=== PATIENT | male | born 1940 | race Caucasian/White ===

== ENCOUNTER → 2016-09-07 | Outpatient (CLI) | payer OTHER ==
[2016-09-07 13:18] LABS: URINE APPEARANCE CLEAR (CLEAR); URINE BILIRUBIN NEG (NEG); URINE COLOR YELLOW; URINE NITRITE NEG (NEG); UROBILINOGEN NEG (NEG); ZZUR CULT IF INDIC CLEAN CATCH NO
[2016-09-07 13:23] LABS: MANUAL MICROSCOPIC REQUIRED? NO; REVIEW REQ? NO
== END | disposition home or self-care (01) ==
LOC: C.LABMFLN 08:53
PROVIDERS: ATTEND Family Medicine
DX: R10.9 Unspecified abdominal pain (principal)

== ENCOUNTER → 2017-02-15 | Outpatient (CLI) | payer OTHER ==
--- NOTE | 2017-02-15 15:18 | DIAGNOSTIC IMAGING REPORT ---
CT SCAN OF THE ABDOMEN AND PELVIS WITHOUT IV CONTRAST CLINICAL HISTORY: Adrenal myelolipoma. Pancreatic neoplasm. COMPARISON STUDY: No priors. TECHNIQUE: CT scan of the abdomen and pelvis is performed from the lung bases to the proximal femora. Images are reviewed in the axial, sagittal, and coronal planes. IV contrast was not administered for this examination. Note that the examination is suboptimal without oral and IV contrast. Automated dose control exposure was utilized. CT DOSE: 1020.83 mGycm FINDINGS: Lung bases: The heart is normal in size and without pericardial effusion. There is a 6 mm left lower lobe pulmonary nodule seen on image #62. The lung bases are otherwise clear. A small hiatal hernia is identified. Liver: The unenhanced liver is normal in size and contour. The liver demonstrates diffusely diminished attenuation consistent with hepatic steatosis. There is no intrahepatic biliary ductal dilatation. There is minimal pneumobilia, likely related to previous sphincterotomy. Gallbladder: Surgically absent noting clips in the gallbladder fossa. Spleen: The spleen is mildly enlarged measuring 13.5 cm in length. Pancreas: There are is near complete fatty atrophy of the pancreas. An indeterminant 1.1 cm nodule is seen within or adjacent to the pancreatic head on image #139. Adrenal glands: The left adrenal gland is normal in appearance. There is a heterogeneous lesion expected location of the right adrenal gland. This is predominantly fat density, contains thin strands of soft tissue as well as coarse calcifications. This is best seen on axial image #153 and measures 6.3 x 8.1 x 7.4 cm. Kidneys: The unenhanced kidneys are atrophic and without hydronephrosis. There are 2 nonobstructing left renal calculi measuring up to 8 mm. No right renal calculi are identified. There is no evidence of contour deforming renal mass lesion. Abdominal vasculature: The abdominal aorta is normal in course and caliber noting mild atherosclerotic calcification. Bowel: There is no bowel obstruction. There are scattered colonic diverticula without CT evidence of acute diverticulitis. Findings are consistent with previous appendectomy. A 1.6 cm calcified structure in the cecum is seen on image #178 and likely represents fecal contents. Peritoneum: There is no intraperitoneal free air or abdominal ascites. There is a fat-containing umbilical hernia. Lymphadenopathy: There are enlarged right cardiophrenic lymph nodes. The largest is seen on image #32 and measures 1.9 x 1.6 cm. There is no upper abdominal, retroperitoneal, pelvic sidewall, or inguinal lymphadenopathy. Pelvic viscera: There is median lobe hypertrophy of the prostate gland. The bladder is normal as visualized. Skeletal structures: The skeletal structures are osteopenic. Mild to moderate lumbosacral spondylosis is observed. There is evidence of previous laminectomy in the lower lumbar spine. No lytic or blastic lesions are seen. IMPRESSION: 1. There is an 8.1 cm predominantly fat-containing lesion in the expected location of the right adrenal gland. This also contains thin strands of soft tissue and coarse calcifications. The appearance is most typical for a large adrenal myelolipoma. Although considered much less likely, given the size and location a retroperitoneal liposarcoma is the primary differential consideration. At a minimum, continued imaging follow-up is recommended. 2. There is near complete fatty atrophy of the pancreas. An 11 mm ovoid soft tissue nodule is identified within or adjacent to the head of the pancreas. This is of low suspicion, and could represent residual pancreatic tissue or possibly a small peripancreatic lymph node. Neoplasm is considered much less likely, and the appearance is not consistent with pancreatic adenocarcinoma. 3. Hepatic steatosis. 4. Mild splenomegaly. 5. There are pathologically enlarged right cardiophrenic lymph nodes. These are of indeterminant etiology and significance. No additional enlarged lymph nodes are identified in the other pelvis. 6. There is an indeterminant 6 mm left lower lobe pulmonary nodule. Consider a CT scan of the chest for full assessment of the thorax 7. Nonobstructing left renal calculi. 8. Additional findings as above. Electronically signed by: Talon Godinez M.D. 02/15/2017 3:16 PM Dictated Date/Time: 02/15/2017 3:03 PM
== END | disposition home or self-care (01) ==
LOC: C.CTS 14:17
PROVIDERS: ATTEND Surgery
DX: D17.79 Benign lipomatous neoplasm of other sites (principal); D49.0 Neoplasm of unspecified behavior of digestive system; K76.0 Fatty (change of) liver, not elsewhere classified; R59.0 Localized enlarged lymph nodes; R91.1 Solitary pulmonary nodule; N20.0 Calculus of kidney

== ENCOUNTER → 2017-03-02 | Outpatient (CLI) | payer OTHER ==
[~2017-03-02] MED LIST: OPTIRAY 320 IV PRN
--- NOTE | 2017-03-02 14:10 | DIAGNOSTIC IMAGING REPORT ---
CT SCAN OF THE CHEST WITHOUT IV CONTRAST CLINICAL HISTORY: Pulmonary nodule. COMPARISON STUDY: Abdominal CT dated 02/15/2017. TECHNIQUE: CT scan of the thorax was performed from the thoracic inlet to the upper abdomen. Images are reviewed in the axial, sagittal, and coronal planes. IV contrast was not administered for this examination as per the referring clinician. A dose lowering technique was utilized adhering to the principles of ALARA. CT DOSE: 403.84 mGycm FINDINGS: Thyroid: Imaged portions of the thyroid gland are normal in size and attenuation. Thoracic aorta: The thoracic aorta is normal in caliber and demonstrates standard 3-vessel arch anatomy. Heart: The heart is normal in size and without pericardial effusion. Lungs and pleural spaces: There is no airspace consolidation or pleural effusion. The trachea and central airways are clear. The pulmonary nodule at the left lung base seen on 02/15/2017 has decreased in size, now measuring 3 mm as seen on image #213. An additional 3 mm left lower lobe pulmonary nodule is seen on image #137. Mediastinum: There is no mediastinal lymphadenopathy. Lexi: Not well assessed without IV contrast. Axillae: There is no axillary lymphadenopathy. Upper abdomen: There is a small hiatal hernia. Cholecystectomy clips are noted. Trace pneumobilia is observed. Skeletal structures: The skeletal structures are osteopenic. Degenerative change is noted in the thoracic spine and shoulders. No lytic or blastic bony lesions are seen. IMPRESSION: 1. There is no airspace consolidation or pleural effusion. 2. The pulmonary nodule at the left lung base seen on 02/15/2017 has decreased in size, now measuring 3 mm (previously measured 6 mm). This is likely on an inflammatory basis and is of low suspicion. 3. An additional indeterminant but low suspicion 3 mm left lower lobe pulmonary nodule is noted. This can be followed if clinically warranted. See below. Please refer to below summary of Fleischner criteria recommendations for follow-up of incidental CT nodules (Jeremy Pereira, Guidelines for management of small pulmonary nodules detected on CT scans: A statement from the Fleischner Society, Radiology 237: [phone].) SOLID NODULES Solitary nodule size: <6 mm * low risk patients: no follow-up needed * high risk patients: optional CT at 12 months Solitary nodule size: 6-8 mm * low risk patients: follow-up at 6-12 months, then consider further follow-up at 18-24 months * high risk patients: initial follow-up CT at 6-12 months and then at 18-24 months if no change Solitary nodule size: >8 mm * either low or high risk patients - consider follow-up CT at 3 months, and/or CT-PET, and/or biopsy Multiple nodules size: <6 mm * low risk patients: no routine follow-up * high risk patients: optional CT at 12 months Multiple nodules size: 6-8 mm * low risk patients: follow-up at 3-6 months, then consider further follow-up at 18-24 months * high risk patients: follow-up at 3-6 months, then at 18-24 months if no change Multiple nodules size: >8 mm * low risk patients: follow-up at 3-6 months, then consider further follow-up at 18-24 months * high risk patients: follow-up at 3-6 months, then at 18-24 months if no change Note: newly detected indeterminate nodule in persons 35 years of age or older. * low risk patients: minimal or absent history of smoking and/or other known risk factors * high risk patients: history of smoking or of other known risk factors (e.g. first degree relative with lung cancer, or exposure to asbestos, radon, uranium) * if a nodule up to 8 mm is partly solid or is ground glass further follow-up is required after 24 months to exclude possible slow growing adenocarcinoma ([place]ALY) SUBSOLID NODULES Solitary pure ground-glass nodule * nodule size <6 mm - no CT follow-up required * nodule size >=6 mm - follow-up CT at 6-12 months, then every 2 years until 5 years Solitary part-solid nodule * nodule size <6 mm - no CT follow-up required * nodule size >=6 mm - follow-up CT at 3-6 months. If unchanged, and solid component remains <6 mm, then annual follow-up for 5 years Multiple subsolid nodules * nodule size <6 mm - follow-up CT at 3-6 months, consider further follow-up at 2 and 4 years if stable * nodule size >=6 mm - follow-up CT at 3-6 months, subsequent management based on the most suspicious nodule(s) Electronically signed by: Talon Godinez M.D. 03/02/2017 2:09 PM Dictated Date/Time: 03/02/2017 2:03 PM
== END | disposition home or self-care (01) ==
LOC: C.CTS 13:24
PROVIDERS: ATTEND Family Medicine
DX: D49.0 Neoplasm of unspecified behavior of digestive system (principal); R91.8 Other nonspecific abnormal finding of lung field; E27.9 Disorder of adrenal gland, unspecified

== ENCOUNTER → 2017-03-02 | Outpatient (CLI) | payer OTHER ==
--- NOTE | 2017-03-02 14:20 | DIAGNOSTIC IMAGING REPORT ---
PANCREAS (ABDOMEN) COMBO CLINICAL HISTORY: NEOPLASM OF HEAD OF PANCREAS TECHNIQUE: Multiphase CT evaluation of the abdomen COMPARISON STUDY: 02/15/2017 FINDINGS: Mild fatty infiltration of liver. Liver spleen and pancreas otherwise enhance uniformly. Myelolipoma of the right adrenal/kidney complex is unchanged. This most likely benign finding. Fatty replacement of pancreas is noted. The left millimeter nodule at the pancreatic head behaviors similar to [place] pancreatic tissue. There is minimal postcontrast enhancement.. No distention of the pancreatic or biliary ductal system. Graph unchanging nonobstructing renal calcifications a left kidney. No evidence for hydronephrosis. Small hiatal hernia is again noted. IMPRESSION: 1. Benign-appearing myelolipoma of the right adrenal. 2. 11 millimeter nodular density pancreatic head felt to represent residual pancreatic tissue with the remainder of the pancreas fatty replaced. 3. Unchanging right cardiophrenic lymph nodes previously described. The above report was generated using voice recognition software. It may contain grammatical, syntax or spelling errors. Electronically signed by: Jose Silva M.D. 03/02/2017 2:19 PM Dictated Date/Time: 03/02/2017 2:02 PM
== END | disposition home or self-care (01) ==
LOC: C.CTS 13:21
PROVIDERS: ATTEND Surgery
DX: D49.0 Neoplasm of unspecified behavior of digestive system (principal); E27.9 Disorder of adrenal gland, unspecified

== ENCOUNTER 2017-12-27 13:37 | Emergency (ER) | payer OTHER ==
[~2017-12-27] VITALS: Ht 161.3 cm; Wt 81.2 kg
[2017-12-27 13:43] VITALS: TEMP 36.5; Ht 161.3 cm; Wt 81.2 kg
[2017-12-27] MEDS ORDERED: RANITIDINE HCL SYRUP 150 MG/10 ML UDC PO ONE (14:15)
[2017-12-27] MEDS ORDERED: SODIUM CHLORIDE 0.9% 1000ML 1,000 ML IV SCH (14:15)
--- NOTE | 2017-12-27 14:22 | EMERGENCY ROOM VISIT NOTE ---
History First contact with patient: 13:49 Chief Complaint: VOMITING Stated Complaint: NAUSEA,VOMITING, CANT KEEP ANYTHING DOWN Nursing Triage Summary: Patient presents with c/o nausea and vomiting that began on 12/24/17 Bilateral upper abdominal pain (chronic since surgery in 08/2017) States he is unable to keep anything down Hx/ esophageal cancer, surgical removal of part of esophagus and part of stomach in 08/2017 He states he has had intermittent nausea and vomiting since the surgery History of Present Illness The patient is a 77 year old male who presents to the Emergency Room with complaints of bilateral upper abdominal pain. He was sent here by his PCP The pain is located in his upper abdomen. He describes it as a dull pain that becomes sharp after eating. 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 He has had associated vomiting which has been occurring for 3-4 days at a time and then can stop for 1-2 weeks at a time. His vomit is green and made of up food particles. No blood in the vomit currently but notes he has had blood in his vomit in the past. He describes it as coffee ground. His surgery was done at the end of August. He notes that prior to the surgery he had chemotherapy and radiation. He is scheduled for a repeat CT scan on February 11 with follow up with his oncologist. He has had associated fatigue, and weight loss of 50-60 pounds. He denies any fevers, chills, night sweats, chest pain, shortness of breath, diarrhea, constipation, dysuria, hematuria, dizziness or light-headedness Review of Systems CONSTITUTIONAL: No fever, chills, sweats or night sweats. No recent infections. 50 pound weight loss NEUROLOGIC: No headaches, dizziness or syncopal episodes. HEENT: No hearing or visual changes. No sinus or nasal issues. No mouth sores, thrush or oral lesions. CARDIOVASCULAR: No chest pain or palpitations. RESPIRATORY: No SOB, dyspnea, cough or hemoptysis. GASTROINTESTINAL: Has had vomiting, no diarrhea, constipation, reflux. GENITOURINARY: No dysuria, frequency, urgency, incontinence or hematuria. SKIN: No rashes or skin lesions. No hair loss or nail changes. HEMATOLOGIC: No bleeding or abnormal bruising Past Medical/Surgical History Stomach/esophageal cancer Adrenal Gland tumour Back Surgery Large bowel resection due to diverticulitis Family History Brother and Dad- Diabetes Mother - macular degeneration Social History Smoking Status: Former Smoker Smokeless Tobacco Use: No Alcohol Use: none Drug Use: none Housing Status: lives alone Occupation Status: retired Current/Historical Medications Scheduled Cholecalciferol (Vitamin D3), 1 CAP PO DAILY Potassium Chloride (Micro-K Ext Rel), 10 MEQ PO BID Miscellaneous Medications Fish Oil ([place]-3), 1 CAP PO Resident Involvement: Resident Care Provided Care Provided: Adult ED Physical Exam Vital Signs Date Time Temp Pulse Resp B/P (MAP) Pulse Ox O2 Delivery O2 Flow Rate FiO2 12/27/17 15:45 76 18 100/68 97 Room Air 12/27/17 14:30 96 Room Air 12/27/17 14:13 90 12/27/17 14:09 81 20 108/83 96 Room Air 12/27/17 13:43 36.5 77 20 98/64 94 Room Air Physical Exam HEENT: Head - normocephalic and atraumatic. Pupils are equal, round, and reactive to light. Extraocular eye muscles are intact and sclera are anicteric. Nose - moist nasal mucosa without discharge. Mouth - moist buccal mucosa. Oropharynx is nonerythematous and there is no tonsillar exudate or edema noted. Neck: Supple; no JVD, nuchal rigidity, cervical lymphadenopathy, or auscultated bruits. Heart: Regular rate and rhythm. There is a normal S1 and S2 with no murmurs, clicks, or gallops appreciated. Lungs: Clear to auscultation bilaterally with no wheezes, rales, or rhonchi. Abdomen: Soft, mild tenderness to palpation throughout. There are no palpable pulsatile masses or hepatosplenomegaly. There is no guarding, rigidity, or rebound noted. Extremities: No evidence of cyanosis, clubbing, or edema. There are easily palpable peripheral pulses. Neuro:The patient is awake and alert, oriented to day, time, and place. Muscle strength is 5/5 in all 4 extremities. The patient has equal part time receptionist strength and equal pedal push and pull. There are no cerebellar signs. Medical Decision & Procedures Laboratory Results 12/27/17 14:25 12/27/17 14:25 Test 12/27/17 14:25 Red Blood Count 4.72 M/uL (4.7-6.1) Mean Corpuscular Volume 85.6 fL (80-100) Mean Corpuscular Hemoglobin 29.0 pg (25-34) Mean Corpuscular Hemoglobin Concent 33.9 g/dl (32-36) RDW Standard Deviation 44.9 fL (36.4-46.3) RDW Coefficient of Variation 14.3 % (11.5-14.5) Mean Platelet Volume 10.9 fL (7.4-10.4) Anion Gap 7.0 mmol/L (3-11) Est Creatinine Clear Calc Drug Dose 64.0 ml/min Estimated GFR () 90.4 Estimated GFR (Non- 78.0 BUN/Creatinine Ratio 14.0 (10-20) Calcium Level 8.5 mg/dl (8.5-10.1) Total Bilirubin 1.2 mg/dl (0.2-1) Aspartate Amino Transf (AST/SGOT) 39 U/L (15-37) Alanine Aminotransferase (ALT/SGPT) 24 U/L (12-78) Alkaline Phosphatase 136 U/L (45-117) Total Protein 6.2 gm/dl (6.4-8.2) Albumin 3.1 gm/dl (3.4-5.0) Globulin 3.1 gm/dl (2.5-4.0) Albumin/Globulin Ratio 1.0 (0.9-2) Lipase 65 U/L (73-393) Medications Administered Medications (Trade) Dose Ordered Sig/Sol Route Start Time Stop Time Status Last Admin Dose Admin Sodium Chloride 1,000 ml @ 999 mls/hr Q1H1M IV 12/27/17 14:15 01/26/18 14:14 12/27/17 14:36 999 MLS/HR Ranitidine HCl (zANTac SYRUP) 150 mg NOW ONCE PO 12/27/17 14:15 12/27/17 14:16 DC 12/27/17 14:36 150 MG ED Course 1415: Patient was seen and examined by myself. 1425: Spoke to Dr. Cardona and discussed plan. Order Labs and CT scan of abdomen. Administering 1 L of fluids, PO zantac and IV zofran 1700: CT scan and labs returned. CT showed a hiatal hernia and part of the stomach in the thorax. Labs did not show any acute worrisome findings. Patient had not vomited in the ED but was still having 4/10 abdominal pain. 1720: Discussed the case with the patient and it was decided that he would follow up with his PCP Dr. Burgess later in the week for further referral to his specialists. Patient was agreeable to this. Medical Decision Patient is a 77 year male with a PMH of upper GI resection with post surgical gastroparesis, gastritis and esophagitis. He was on omeprazole and carafate as an outpatient which was stopped by his PCP. He is currently taking metoclopramide and ranitidine according to [facility] records. The patient is unaware of what medications he is currently taking. His CT scan showed a hiatal hernia with his stomach contents in his thorax. He is likely have reflux that has been worse when laying down and he notes that he isn't able to eat as much as he used to. We decided that it would be beneficial to out him back on his PPI and to eat smaller more regular meals. We are organizing him to have follow up with his PCP for further referral to GI specialist if needed. The patient understood this plan and was in agreement with this plan. Medication Reconcilliation Current Medication List: was personally reviewed by me Impression Primary Impression: Vomiting Departure Information Dispostion Home / Self-Care Condition FAIR Referrals Lyle Burgess M.D. (PCP) Patient Instructions My [facility] Resident Tracking Resident Involvement: Resident Care Provided Care Provided: Adult ED Resident Tracking Resident Involvement: Resident Care Provided Care Provided: Adult ED
[2017-12-27 14:30] VITALS: O2SAT 96
[2017-12-27] MEDS ORDERED: OPTIRAY 320 IV PRN (14:30)
[2017-12-27] MEDS ORDERED: OMEG10007 PO (14:36)
[2017-12-27] MEDS ORDERED: CHOL2000 PO (14:36)
[2017-12-27] MEDS ORDERED: POTA10CA28 PO (14:39)
--- NOTE | 2017-12-27 14:43 | EMERGENCY ROOM VISIT NOTE ---
ED Visit Note First contact with patient: 13:49 Resident Physician Supervision Note: I was present with Dr. Hannah during the history and exam. I discussed the case with the resident and agree with the findings and plan as documented in the note. Any exceptions or clarifications are listed here: None Documented By: Dejon Cardona
[2017-12-27 14:56] LABS: HEMATOCRIT 40.4 % (42-52); HEMOGLOBIN 13.7 g/dL (14.0-18.0); MEAN CELL VOLUME 85.6 fL (80-100); MEAN CORPUSCULAR HGB CONC 33.9 g/dl (32-36); MEAN PLATELET VOLUME 10.9 fL (7.4-10.4); PLATELET COUNT 111 K/uL (130-400); RED CELL DISTRIBUTION WIDTH CV 14.3 % (11.5-14.5); RED CELL DISTRIBUTION WIDTH SD 44.9 fL (36.4-46.3); WHITE BLOOD COUNT 5.49 K/uL (4.8-10.8)
[2017-12-27] MEDS ORDERED: ONDANSETRON INJ 2 MG/ML 2 ML VIAL IV STA (15:04)
[2017-12-27 15:32] LABS: ALBUMIN 3.1 gm/dl (3.4-5.0); CALCIUM 8.5 mg/dl (8.5-10.1); CREATININE 0.95 mg/dl (0.60-1.40); POTASSIUM 3.2 mmol/L (3.5-5.1); TOTAL PROTEIN 6.2 gm/dl (6.4-8.2)
--- NOTE | 2017-12-27 16:55 | DIAGNOSTIC IMAGING REPORT ---
ABDOMEN AND PELVIS CT WITH IV CONTRAST CT DOSE: 1156.65 mGycm HISTORY: Acute upper abdominal pain . History of prior pancreatic head neoplasm resection. Upper abdominal pain after esophagus and stomach resection TECHNIQUE: Multiaxial CT images of the abdomen and pelvis were performed following the use of intravenous contrast. A dose lowering technique was utilized adhering to the principles of ALARA. COMPARISON STUDY: CT abdomen 03/02/2017. FINDINGS: Linear subsegmental consolidative opacities about the right lung base suggest atelectasis/scarring. There is no pneumatosis or pneumoperitoneum. The imaged inferior cardiac chambers are within the upper limits of normal. Coronary arterial calcifications noted. Trace pericardial effusion. 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 No focal hepatic mass lesions identified. Spleen and left adrenal gland are unremarkable. Moderate to severe generalized pancreatic atrophy without ectatic duct dilation or focal mass identified. Right-sided adrenal myolipoma redemonstrated, 7.5 x 6.9 cm with calcifications noted along the superior margin of the mass. 8 mm nonobstructing calculus of the interpolar left kidney. There are additional nonobstructing renal calculi noted bilaterally. There is mild nonspecific bilateral perinephric fat stranding. No ureteral calculi or obstructive uropathy. Mild prostamegaly with mild wall thickening of the bladder. No aortic aneurysm. IVC is unremarkable. Mildly enlarged pericaval lymph node measures 10 mm on image 199 series 3, unchanged. No new adenopathy identified. Postoperative changes of the esophagus and proximal stomach. Moderate sized hiatal hernia with partially intrathoracic stomach, only partially imaged. There is no small bowel obstruction or focal bowel wall thickening identified. Postoperative changes about the cecum suggesting prior partial right hemicolectomy with ileocolic anastomosis. Area of probable remote epiploic appendagitis measures 10 mm within the right lower quadrant. Postoperative changes of the abdominal wall with 1.5 cm fat-containing periumbilical hernia. Soft tissues are otherwise unremarkable. Multilevel facet arthrosis and discogenic degenerative changes about the lumbar spine result in varying degrees of central canal and foraminal narrowing. No suspicious lytic or blastic bony lesions identified. IMPRESSION: 1. Postoperative changes about the proximal stomach with moderate hiatal hernia and partially intrathoracic stomach. No bowel obstruction or focal bowel wall thickening identified. 2. 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 3. Bilateral nonobstructing nephrolithiasis. 4. Large right adrenal myolipoma, unchanged. 5. Prostamegaly with mild bladder wall thickening suggesting sequela of chronic bladder outlet obstruction. Correlate clinically to exclude cystitis. 6. Small periumbilical hernia. Electronically signed by: Bertrand Diaz M.D. 12/27/2017 4:53 PM Dictated Date/Time: 12/27/2017 4:43 PM
[2017-12-27 18:01] VITALS: BP 112/74; PULSE 75; O2SAT 98
== END 2017-12-27 18:10 | disposition home or self-care (01) ==
LOC: C.EDB 13:38
DX: R11.10 Vomiting, unspecified (principal); C16.9 Malignant neoplasm of stomach, unspecified; C15.9 Malignant neoplasm of esophagus, unspecified; E27.8 Other specified disorders of adrenal gland; Z87.891 Personal history of nicotine dependence; Z79.899 Other long term (current) drug therapy